=== PATIENT | female | born 1955 | race Caucasian/White ===

== ENCOUNTER 2016-03-03 08:42 | Emergency (ER) | payer OTHER, MEDICAID ==
[~2016-03-03] VITALS: Ht 162.6 cm; Wt 63.5 kg
[2016-03-03 09:13] VITALS: BP 155/87
[2016-03-03] MEDS ORDERED: KETOROLAC TROMETH 60MG/2ML VIAL IM ONE (09:45)
[2016-03-03 10:27] LABS: Hematocrit 41.5 % (36.0-46.0); Hemoglobin 13.5 g/dL (12.2-16.2); Mean Corpuscular Hgb Conc. 32.6 g/dL (32.0-36.0); Mean Platelet Volume 5.9 fL (7.4-10.4); Platelet Count (auto) 396 10^3/uL (140-450); Red Cell Distribution Width 14.1 % (11.6-16.0); White Blood Cell 8.4 10^3/uL (4.4-10.8)
[2016-03-03 10:37] LABS: Metamyelocytes % 0; Myelocytes % 0; Promyelocytes % 0; Reactive Lymphocytes 0
[2016-03-03 10:45] LABS: Albumin 3.5 g/dL (3.4-5.0); BUN/Creatinine Ratio 6.7; Bilirubin, Total 0.3 mg/dL (0.2-1.0); Calcium 9.2 mg/dL (8.5-10.1)
[2016-03-03] MEDS ORDERED: HYDROcodone-ACET 10/325MG TAB PO ONE (11:00)
[2016-03-03 11:02] LABS: Platelet Estimate Adequate; RBC Morphology Normal
== END 2016-03-03 12:01 | disposition home or self-care (01) ==
LOC: ER 08:42
DX: G44.209 Tension-type headache, unspecified, not intractable (principal); F31.9 Bipolar disorder, unspecified; I10 Essential (primary) hypertension
CPT/HCPCS: 36415; 70450; 80053; 85007; 85027; 85049; 85652; 96372; 99285; J1885